=== PATIENT | male | born 1930 ===

== ENCOUNTER 2016-05-25 05:57 | Emergency (ER) | payer MEDICARE, BC ==
--- NOTE | 2016-05-25 06:53 | ED Physician Documentation ---
Hip Injury/Pain - HISTORIAN Historian: patient, child - HPI Stated Complaint: fall--left knee pain Chief Complaint: Fall Onset: minutes Where: home Severity: moderate Duration: persistent since Context: fall Symptoms Prior to Fall: none Other Injuries: none Subsequent Symptoms: denies: sensory loss, bowel problem Further Comments: no - ROS CONST: no problems RESP: denies: shortness of breath GI/: none. denies: abdominal pain EYES/ENT: none MS/SKIN/LYMPH: denies: neck pain, ankle swelling, rash NEURO/PSYCH: denies: confusion, anxiety, depression - PAST HX Cardiac Disease: none PE Risk Factors: none, hypertension Other History: CVA, hyperlipidemia - SOCIAL HX Smoking History: non-smoker Alcohol Use: none Drug Use: none - FAMILY HX Family History: No - REVIEWED ASSESSMENTS Nursing Assessment Reviewed: Yes Vitals Reviewed: Yes <Moe Garcia - Last Filed: 05/25/16 07:08> <Mariano Salazar - Last Filed: 05/25/16 07:50> - [facility] Additional Information: uses walker afterrecent stroke. 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 Found on floor with pain in Left knee. her and helped him up. Complains of pain in upper leg/knee. unable to bear weight. No other c/o 's (Moe Garcia) - PAST HX Allergies/Adverse Reactions: Allergies Allergy/AdvReac Type Severity Reaction Status Date / Time No Known Allergies Allergy Verified 05/25/16 06:07 Home Medications: Ambulatory Orders Medication Instructions Recorded Alfuzosin HCl [Uroxatral] 10 mg PO [id number] 05/25/16 Aspirin [Dawit] 325 mg PO QDAY 05/25/16 Cholecalciferol [Vitamin D-3] 1,000 unit PO DAILY 05/25/16 Ciprofloxacin HCl [Cipro] 500 mg PO BID 05/25/16 Citalopram Hydrobromide [Celexa] 10 mg PO QD 05/25/16 Diltiazem HCl [Cardizem] 120 mg PO QDAY 05/25/16 Docusate Sodium [Dok] 100 mg PO QDAY PRN 05/25/16 Pravastatin Sodium [Pravachol] 20 mg PO HS 05/25/16 Ranitidine HCl [Zantac] 150 mg PO BID PRN 05/25/16 guaiFENesin DM [Robitussin Dm] 05/25/16 - VITAL SIGNS Vital Signs: Vital Signs Temp Pulse Resp BP Pulse Ox 98.5 F 85 16 114/74 93 05/25/16 06:00 05/25/16 06:00 05/25/16 06:00 05/25/16 06:00 05/25/16 06:00 (Moe Garcia) (Mariano Salazar) Progress <Moe Garcia - Last Filed: 05/25/16 07:08> <Mariano Salazar - Last Filed: 05/25/16 07:50> - Results/Orders Results/Orders: RECEIVED CARE THIS PT FROM DR GARCIA. HE HAS ACCEPTANCE FROM [facility] FOR TRANSFER. WE ARE AWAITING BED ASSIGNMENT THEN [facility]. DR KAUR WAS ACCEPTING PHYSICIAL AT [place]. (Mariano Salazar) Hip Injury/Pain Physical Exam - EXAM General Appearance: alert Extremities: shortening of leg, hip pain on leg movement EENT: eye inspection normal, ENT inspection normal, no signs of dehydration Neck: nml inspection Respiratory: chest non-tender, breath sounds nml CVS: heart sounds normal Abdomen: non-tender Back: non-tender Skin: warm/dry, normal color Neuro/Psych: oriented x3, neuro grossly intact, mood/affect nml <Moe Garcia - Last Filed: 05/25/16 07:08> Discharge <Moe Garcia - Last Filed: 05/25/16 07:08> Decision to Admit: [id number] Decision Time: 07:48 <Mariano Salazar - Last Filed: 05/25/16 07:50> Clincal Impression: Femur fracture, left Qualifiers: Encounter type: initial encounter Femur location: shaft Fracture type: closed Fracture morphology: spiral Fracture alignment: displaced Qualified Code(s): S72.342A - Displaced spiral fracture of shaft of left femur, initial encounter for closed fracture Referrals: Aayush Padilla MD [Primary Care Provider] - 2 Days Home Medications: Ambulatory Orders Alfuzosin HCl [Uroxatral] 10 mg PO [id number] 05/25/16 Aspirin [Dawit] 325 mg PO QDAY 05/25/16 Cholecalciferol [Vitamin D-3] 1,000 unit PO DAILY 05/25/16 Ciprofloxacin HCl [Cipro] 500 mg PO BID 05/25/16 Citalopram Hydrobromide [Celexa] 10 mg PO QD 05/25/16 Diltiazem HCl [Cardizem] 120 mg PO QDAY 05/25/16 Docusate Sodium [Dok] 100 mg PO QDAY PRN 05/25/16 Pravastatin Sodium [Pravachol] 20 mg PO HS 05/25/16 Ranitidine HCl [Zantac] 150 mg PO BID PRN 05/25/16 guaiFENesin DM [Robitussin Dm] 05/25/16 Comments: TNSF TO [facility] - (Mariano Salazar) Condition: Good Disposition: [facility]
[2016-05-25] MEDS ORDERED: HYDROmorphone HCL/PF 1 MG/ML DISP.SYRIN ONE (07:05)
--- NOTE | 2016-05-25 07:13 | Diagnostic Imaging Report ---
CHERRY PERRY~ [facility] [address] [facility] [address] ~ ~ ~ ~ Report Submission Date: May 25, 2016 6:58:44 AM ELECTRICITY TRADER Patient ~ Study Name: BEBA DUBOSE ~ Date: May 25, 2016 6:34:11 AM ELECTRICITY TRADER ~ Modality Type: CR Gender: M ~ Description: LOWER EXTREMITY : [birth year] ~ Institution: [facility] Physician: CHERRY PERRY ~ ~ ~ ~ HISTORY: 85-year-old male fell, left leg pain. COMPARISON: Radiographs of the left knee from the same day. TECHNIQUE: AP and lateral views of the left femur were performed. FINDINGS: There is a spiral fracture of the left femoral midshaft with complete displacement, apex anterior angulation, and 7 cm shortening. ~There is a nondisplaced left proximal femoral intertrochanteric fracture. IMPRESSION: 1. ~Spiral fracture of the left femoral mid shaft with displacement, angulation , and shortening. 2. ~Nondisplaced left proximal femoral intertrochanteric fracture. ~ Electronically signed on May 25, 2016 6:58:44 AM ELECTRICITY TRADER by: James JOHNSON
[2016-05-25] MEDS: ONDANSETRON HCL/PF 4 MG/ 2ML VIAL IVP ONE (07:15)
[2016-05-25] MEDS: DIAZEPAM 5 MG/ML DISP.SYRIN IVP ONE (07:15)
--- NOTE | 2016-05-25 07:15 | Diagnostic Imaging Report ---
CHERRY PERRY~ [facility] [address] [facility] [address] [address] ~ ~ ~ ~ Report Submission Date: May 25, 2016 6:56:21 AM CYCLE DIRECTOR Patient ~ Study Name: BEBA DUBOSE ~ Date: May 25, 2016 6:15:58 AM CYCLE DIRECTOR ~ Modality Type: CR Gender: M ~ Description: LOWER EXTREMITY : [birth year] ~ Institution: [facility] Physician: CHERRY PERRY ~ ~ ~ ~ HISTORY: 85-year-old male fell, left leg pain. COMPARISON: Radiographs of the left femur from the same day. TECHNIQUE: Two views of the left knee were performed. FINDINGS: No acute fracture is identified about the left knee. There is a partially visualized left femoral shaft fracture, better characterized on radiographs of the left femur from the same day. ~There is joint space narrowing of the medial compartment. ~No definite knee effusion. There are atherosclerotic calcifications. IMPRESSION: 1. ~Left femoral shaft fracture better characterized on radiographs of the right femur from the same day. 2. ~Degenerative changes of the medial compartment of the left knee. ~ Electronically signed on May 25, 2016 6:56:21 AM CYCLE DIRECTOR by: James JOHNSON
[2016-05-25] MEDS: HYDROmorphone HCL/PF 2 MG/ML DISP.SYRIN IVP ONE (07:39)
[2016-05-25 08:25] VITALS: BP 98/57
== END 2016-05-25 08:00 | disposition short-term general hospital (02) ==
LOC: ED 05:57
DX: S72.342A Displaced spiral fracture of shaft of left femur, initial encounter for closed fracture (principal); W19.XXXA Unspecified fall, initial encounter; Y93.9 Activity, unspecified; Y99.9 Unspecified external cause status
CPT/HCPCS: 73552; 73560; J2405; J3360; 96374; 96375; 99284; J1170; S1016

== ENCOUNTER 2016-09-30 12:53 | Outpatient (CLI) | payer MEDICARE, BC ==
--- NOTE | 2016-09-30 15:28 | Diagnostic Imaging Report ---
KATHERIN ESPAÑA ([place]) [facility] [address] [facility] [address] [place], [place]. [address] Report Submission Date: Sep 30, 2016 3:24:37 PM CDT Patient Study Name: BEBA DUBOSE Date: Sep 30, 2016 1:09:22 PM CDT Modality Type: CT\SR Gender: M Description: CT ABD & PELVIS W/O CO : [birth year] Institution: [facility] Physician: KATHERIN ESPAÑA ([place]) Examination: CT Abdomen/pelvis History: Fever Comparison exams: None available Technique: CT Abdomen/pelvis without contrast protocol. Findings: Liver, spleen, adrenal glands, kidneys, and pancreas are without irregularity. 1 cm cyst upper pole of the right kidney. Gallstone within the gallbladder measuring 1.1 cm. No adjacent inflammation. Bladder margin not thickened. No adjacent inflammatory changes. Abdominal aorta with peripheral atherosclerotic disease. Tortuous course through the abdomen. Prominence of the infra renal aorta to 6 centimeters. Prominence of the iliac vessels bilaterally: right measuring 2.8 cm maximally, left measuring 1.8 cm maximally. Bowel without contrast limiting evaluation. No evidence for acute mesenteric inflammation or free air. Left inguinal hernia with both bowel and omental involvement. No proximal bowel dilation. Osseous structures demonstrate degenerative changes. Left hip fixation hardware. Lung bases demonstrate parenchymal scarring and linear infiltrates with mild flow posterior pleural thickening. Impression: No evidence for renal or bladder inflammatory/infectious changes. Bibasilar infiltrate/effusions 6 cm infrarenal aortic aneurysm. Left inguinal hernia with bowel and omental involvement. No proximal bowel obstruction. A Gallstone. No adjacent inflammation. Discussed findings with caregiver at [facility]cos[facility] at 1520 hours on 30 September 2016. Electronically signed on Sep 30, 2016 3:24:37 PM CDT by: Anselmo JOHNSON
== END 2016-09-30 12:54 ==
LOC: RAD 12:53
PROVIDERS: ATTEND Pediatrics Adolescent Medicine
DX: N30.80 Other cystitis without hematuria (principal)
CPT/HCPCS: 74176